=== PATIENT | male | born 1945 | race Caucasian/White ===

== ENCOUNTER 2024-09-16 15:02 | Outpatient (CLI) | payer MEDICARE, SELFPAY ==
--- NOTE | 2024-09-16 15:09 | XR_ITS ---
WS: [id number] XR chest 2V* [id number] REASON FOR EXAM: cough for 6 months; hx of RML resection for CA FINDINGS: Moderate tortuosity and ectasia of the thoracic aorta. Findings of previous thoracotomy and partial lobectomy right hemithorax: Widened rib interval with ri b deformity with decreased right lung volume and multiple surgical clips and genoveva. Chronic appearing reticular interstitial densities in the lower right lung field. No prior chest x-ra ys for comparison. Relatively large unusual configured calcification which projects in the left upper lobe. XR/XR chest 2V* [id number] IMPRESSION: Post right thoracotomy and partial lobectomy. No acute abnormality identified.
== END 2024-09-16 15:03 | disposition home or self-care (01) ==
LOC: RAD 15:06
PROVIDERS: Visit Provider Family Medicine
DX: Z48.813 Encounter for surgical aftercare following surgery on the respiratory system (principal); I77.810 Thoracic aortic ectasia; R05.3 Chronic cough; Z85.118 Personal history of other malignant neoplasm of bronchus and lung; Z90.2 Acquired absence of lung [part of]
CPT/HCPCS: 71046

== ENCOUNTER → 2025-03-17 13:27 | Outpatient (BNVA) | payer MEDICARE, OTHER, SELFPAY | PROVIDERS: PCP Family Medicine; Visit Provider Family Medicine | DX: I10 Essential (primary) hypertension (principal); E11.9 Type 2 diabetes mellitus without complications; E78.2 Mixed hyperlipidemia; E03.8 Other specified hypothyroidism; R63.4 Abnormal weight loss | CPT/HCPCS: 80053; 80061; 82043; 83036; 84439; 84443 ==

== ENCOUNTER → 2025-04-04 10:15 | Outpatient (BNVA) | payer MEDICARE, OTHER, SELFPAY | PROVIDERS: PCP Family Medicine; Visit Provider Dermatology | DX: L56.8 Other specified acute skin changes due to ultraviolet radiation (principal); D23.5 Other benign neoplasm of skin of trunk; D48.5 Neoplasm of uncertain behavior of skin; L57.0 Actinic keratosis | CPT/HCPCS: 11102; 17000; 40490; 99203 ==

== ENCOUNTER → 2025-04-24 12:16 | Outpatient (BNVA) | payer MEDICARE, OTHER, SELFPAY | PROVIDERS: PCP Family Medicine; Visit Provider Dermatology | DX: D23.71 Other benign neoplasm of skin of right lower limb, including hip (principal); L82.1 Other seborrheic keratosis; L56.8 Other specified acute skin changes due to ultraviolet radiation; L57.0 Actinic keratosis | CPT/HCPCS: 17000; 99213 ==

== ENCOUNTER → 2025-07-31 10:45 | Outpatient (BNVA) | payer MEDICARE, OTHER, SELFPAY | PROVIDERS: PCP Family Medicine; Visit Provider Dermatology | DX: D23.71 Other benign neoplasm of skin of right lower limb, including hip (principal); L73.8 Other specified follicular disorders; D18.01 Hemangioma of skin and subcutaneous tissue; L82.1 Other seborrheic keratosis; L72.0 Epidermal cyst; L56.8 Other specified acute skin changes due to ultraviolet radiation; L57.0 Actinic keratosis | CPT/HCPCS: 17000; 99213 ==

== ENCOUNTER → 2025-09-18 12:15 | Outpatient (BNVA) | payer MEDICARE, OTHER, SELFPAY | PROVIDERS: PCP Family Medicine; Visit Provider Family Medicine | DX: Z00.00 Encounter for general adult medical examination without abnormal findings (principal); E11.65 Type 2 diabetes mellitus with hyperglycemia | CPT/HCPCS: 83036 ==